=== PATIENT | female | born 1995 | race Two or more races ===

== ENCOUNTER 2019-02-26 23:02 | Emergency (ER) | payer SELFPAY ==
[~2019-02-26] VITALS: Ht 170.2 cm; Wt 55.3 kg
[2019-02-26 23:19] VITALS: Ht 170.2 cm; Wt 55.3 kg
[2019-02-26 23:32] VITALS: BP 133/86
== END 2019-02-26 23:33 | disposition left against medical advice (07) ==
LOC: ED 23:02
DX: Z53.21 Procedure and treatment not carried out due to patient leaving prior to being seen by health care provider (principal)

== ENCOUNTER 2019-08-21 06:06 | Emergency (ER) | payer OTHER ==
[~2019-08-21] VITALS: Ht 170.2 cm; Wt 61.2 kg
[2019-08-21 06:14] VITALS: Ht 170.2 cm; Wt 61.2 kg
[2019-08-21 09:48] VITALS: BP 128/79
== END 2019-08-21 09:48 | disposition home or self-care (01) ==
LOC: ED 06:06
DX: K29.70 Gastritis, unspecified, without bleeding (principal); Z90.89 Acquired absence of other organs
CPT/HCPCS: J1885; J2405; J3490; Q0162